=== PATIENT | female | born 2000 | race Caucasian/White ===

== ENCOUNTER → 2021-05-20 | Outpatient (CLI) | payer BC ==
[~2021-05-20] MED LIST: DICY10CA13 PO; LEVO88TA3 PO; LEXA1TAB PO; NORG1TAB33 PO; TRET0.0540
== END ==
LOC: M LABSMTC 12:29
PROVIDERS: ATTEND Anesthesiology
DX: Z01.818 Encounter for other preprocedural examination (principal); Z11.52 Encounter for screening for COVID-19

== ENCOUNTER 2021-05-25 10:55 | Day surgery (SDC) | payer BC ==
[~2021-05-25] VITALS: Ht 160 cm; Wt 73.5 kg
[~2021-05-25 10:55] MED LIST changes: +NS 1,000 ML IV ONE
[2021-05-25] MEDS ORDERED: propofoL 500 MG/50 ML VIAL As Ordered ONE (11:09)
[2021-05-25] MEDS ORDERED: fentaNYL 100 MCG/2 ML INJECTION (J3010) As Ordered ONE (11:11)
[2021-05-25] MEDS ORDERED: LIDOCAINE 2% 100MG/5ML SDV (FOR ANES.) As Ordered ONE (11:13)
--- NOTE | 2021-05-25 13:41 | ROOR ---
Patient Name: Emani Patino Procedure Date: 05/25/2021 1:23 PM Date of : 2000 Age: 20 Room: [facility] Gender: Female Note Status: Finalized Procedure: Upper GI endoscopy Indications: Abdominal pain Providers: Emil Colin MD Referring MD: Ivonne Godinez NP Requesting Provider: Medicines: Monitored Anesthesia Care Complications: No immediate complications. Procedure: Pre-Anesthesia Assessment: - The heart rate, respiratory rate, oxygen saturations, blood pressure, adequacy of pulmonary ventilation, and response to care were monitored throughout the procedure. The Endoscope was introduced through the mouth, and advanced to the second part of duodenum. The upper GI endoscopy was accomplished without difficulty. The patient tolerated the procedure well. Findings: The examined esophagus was normal. The Z-line was variable and was found 38 cm from the incisors. This was biopsied with a cold forceps for histology. The entire examined stomach was normal. The examined duodenum was normal. Biopsies for histology were taken with a cold forceps for evaluation of celiac disease. Impression: - Normal esophagus. Z-line variable, 38 cm from the incisors. Biopsied. - Normal stomach. - Normal examined duodenum. Biopsied. Recommendation: - Observe patient's clinical course. - Telephone endoscopist for pathology results in 2 weeks. Procedure Code(s): --- Professional --- 44895, Esophagogastroduodenoscopy, flexible, transoral; with biopsy, single or multiple Diagnosis Code(s): --- Professional --- K22.8, Other specified diseases of esophagus R10.9, Unspecified abdominal pain CPT copyright 2019 [employer]. All rights reserved. The codes documented in this report are preliminary and upon body specialist review may be revised to meet current compliance requirements. Emil Colin MD Emil Colin MD 05/25/2021 1:41:15 PM Electronically signed by Emil Colin MD Number of Addenda: 0 Note Initiated On: 05/25/2021 1:23 PM Estimated Blood Loss: Estimated blood loss: none.
--- NOTE | 2021-05-25 13:57 | ROOR ---
Patient Name: Emani Patino Procedure Date: 05/25/2021 1:23 PM Date of : 2000 Age: 20 Room: [facility] Gender: Female Note Status: Finalized Procedure: Colonoscopy Indications: Generalized abdominal pain, Suspected irritable bowel syndrome, Mixed irritable bowel syndrome Providers: Emil Colin MD Referring MD: Ivonne Godinez NP Requesting Provider: Medicines: Monitored Anesthesia Care Complications: No immediate complications. Procedure: Pre-Anesthesia Assessment: - The heart rate, respiratory rate, oxygen saturations, blood pressure, adequacy of pulmonary ventilation, and response to care were monitored throughout the procedure. The Colonoscope was introduced through the anus and advanced to 10 cm into the ileum. The colonoscopy was performed without difficulty. The patient tolerated the procedure well. The quality of the bowel preparation was good. Findings: The perianal and digital rectal examinations were normal. Small Internal Hemorrhoids. The entire examined colon appeared normal. The terminal ileum appeared normal. Biopsies for histology were taken with a cold forceps for evaluation of microscopic colitis. Impression: - Small Internal Hemorrhoids. - The entire examined colon is normal. - The examined portion of the ileum was normal. - Biopsies were taken with a cold forceps for evaluation of microscopic colitis. - (Irritable Bowel Syndrome/IBS suspected.) Recommendation: - Use fiber, for example Citrucel, Fibercon, Konsyl or Metamucil. - Continue present medications. - Await pathology results. - Telephone endoscopist for pathology results in 2 weeks. - Please complete your stool testing and your blood work as ordered. Call me 2 weeks after completion of blood/stool testing for results. Procedure Code(s): --- Professional --- 06862, Colonoscopy, flexible; with biopsy, single or multiple Diagnosis Code(s): --- Professional --- K58.2, Mixed irritable bowel syndrome R10.84, Generalized abdominal pain CPT copyright 2019 [employer]. All rights reserved. The codes documented in this report are preliminary and upon emergency dispatcher review may be revised to meet current compliance requirements. Emil Colin MD Emil Colin MD 05/25/2021 1:57:16 PM Electronically signed by Emil Colni MD Number of Addenda: 0 Note Initiated On: 05/25/2021 1:23 PM Estimated Blood Loss: Estimated blood loss: none.
[2021-05-25 14:20] VITALS: BP 110/71
== END 2021-05-25 14:27 | disposition home or self-care (01) ==
LOC: M OPP 10:55
PROVIDERS: ATTEND Internal Medicine Gastroenterology
DX: K58.2 Mixed irritable bowel syndrome (principal); K64.8 Other hemorrhoids; K22.8 Other specified diseases of esophagus; R10.9 Unspecified abdominal pain; Z79.899 Other long term (current) drug therapy; Z88.1 Allergy status to other antibiotic agents; F17.290 Nicotine dependence, other tobacco product, uncomplicated
CPT/HCPCS: 43239; 45380; 88305; J3010

== ENCOUNTER → 2021-07-13 | Outpatient (CLI) | payer BC ==
[~2021-07-13] MED LIST changes: -NS 1,000 ML IV ONE
[2021-07-13 15:46] LABS: FREE T4 1.33 NG/DL (0.76-1.46); IMMUNOGLOBULIN A 88.5 MG/DL (70-400); THYROID STIMULATING HORMONE 2.81 uIU/ML (0.358-3.740)
== END ==
LOC: M LAB 14:29
PROVIDERS: ATTEND Internal Medicine Gastroenterology
DX: K58.2 Mixed irritable bowel syndrome (principal)

== ENCOUNTER → 2022-11-10 | Outpatient (REF) | payer BC | LOC: M SFHCWAGY 17:13 | PROVIDERS: ATTEND Advanced Practice Midwife | DX: Z12.4 Encounter for screening for malignant neoplasm of cervix (principal) ==

== ENCOUNTER 2023-11-02 15:07 | Emergency (ER) | payer BC ==
[~2023-11-02] VITALS: Ht 160 cm; Wt 76.7 kg
[~2023-11-02 15:07] MED LIST changes: +DICY-61 PO; -DICY10CA13 PO
[2023-11-02] MEDS ORDERED: AMIT50TA PO (15:32)
[2023-11-02 16:55] LABS: BASO # 0.1 10^3/uL (0.0-0.2); BASO % 0.8 % (0.0-1.0); EOS # 0.1 10^3/uL (0.0-0.5); LYMPH # 2.1 10^3/uL (1.5-5.0); LYMPH % 32.9 % (24.0-44.0); MEAN CORPUSCULAR HEMOGLOBIN 31.7 pg (27.0-33.0); MEAN CORPUSCULAR HGB CONC 33.3 g/dl (32.0-36.5); MONO # 0.4 10^3/uL (0.0-0.8); MONO % 6.5 % (2.0-8.0); NEUTROPHILS # 3.6 10^3/uL (1.5-8.5); NEUTROPHILS % 57.3 % (36.0-66.0); PLATELET COUNT, AUTOMATED 241 10^3/uL (150-450); RED BLOOD COUNT 4.42 10^6/uL (4.00-5.40); WHITE BLOOD COUNT 6.4 10^3/uL (4.0-10.0)
[2023-11-02 17:18] LABS: BLOOD UREA NITROGEN 11 MG/DL (9-23); CALCIUM LEVEL 9.4 MG/DL (8.5-10.1); CARBON DIOXIDE LEVEL 27 MMOL/L (20-31); CHLORIDE LEVEL 105 MMOL/L (98-107); CREATININE FOR GFR 0.66 MG/DL (0.55-1.30); GLOMERULAR FILTRATION RATE > 60.0 (>60); GLUCOSE, FASTING 124 MG/DL (60-100); HCG, SERUM QUALITATIVE NEGATIVE (NEGATIVE); POTASSIUM SERUM 3.8 MMOL/L (3.5-5.1); SODIUM LEVEL 137 MMOL/L (136-145)
[2023-11-02 22:52] VITALS: BP 142/97; TEMP 97.7; O2SAT 99
== END 2023-11-02 22:53 | disposition home or self-care (01) ==
LOC: M ED 15:07
DX: R31.9 Hematuria, unspecified (principal); E03.9 Hypothyroidism, unspecified; Z88.1 Allergy status to other antibiotic agents; Z79.82 Long term (current) use of aspirin; Z79.890 Hormone replacement therapy; Z79.899 Other long term (current) drug therapy

== ENCOUNTER → 2023-11-23 | Outpatient (REF) | payer BC ==
[~2023-11-23] MED LIST changes: +AMIT50TA PO
== END ==
LOC: M PLALAB 09:44
PROVIDERS: ATTEND Advanced Practice Midwife
DX: Z12.4 Encounter for screening for malignant neoplasm of cervix (principal)

== ENCOUNTER → 2024-01-02 | Outpatient (CLI) | payer BC | LOC: M WHC 11:02 | PROVIDERS: ATTEND Advanced Practice Midwife | DX: N63.20 Unspecified lump in the left breast, unspecified quadrant (principal) ==

== ENCOUNTER → 2024-02-22 | Outpatient (REF) | payer BC ==
[2024-02-22 16:30] LABS: BASO # 0.1 10^3/uL (0.0-0.2); BASO % 1.1 % (0.0-1.0); EOS # 0.1 10^3/uL (0.0-0.5); HEMATOCRIT 38.5 % (36.0-47.0); HEMOGLOBIN 12.9 g/dl (12.0-15.5); LYMPH # 2.2 10^3/uL (1.5-5.0); LYMPH % 33.3 % (24.0-44.0); MEAN CORPUSCULAR HEMOGLOBIN 31.7 pg (27.0-33.0); MEAN CORPUSCULAR HGB CONC 33.5 g/dl (32.0-36.5); MEAN CORPUSCULAR VOLUME 94.6 fl (80.0-96.0); MONO # 0.5 10^3/uL (0.0-0.8); MONO % 7.1 % (2.0-8.0); NEUTROPHILS # 3.7 10^3/uL (1.5-8.5); NEUTROPHILS % 56.2 % (36.0-66.0); PLATELET COUNT, AUTOMATED 253 10^3/uL (150-450); RED BLOOD COUNT 4.07 10^6/uL (4.00-5.40); WHITE BLOOD COUNT 6.5 10^3/uL (4.0-10.0)
[2024-02-22 16:32] LABS: APPEARANCE, URINE CLEAR (CLEAR); BACTERIA, URINE AUTO 3+ (NEGATIVE); BILIRUBIN, URINE AUTO NEGATIVE (NEGATIVE); BLOOD, URINE BLOOD 2+ (NEGATIVE); COLOR, URINE STRAW (YELLOW); GLUCOSE, URINE (UA) AUTO NEGATIVE (NEGATIVE); KETONE, URINE AUTO NEGATIVE (NEGATIVE); LEUKOCYTE ESTERASE, URINE AUTO TRACE (NEGATIVE); NITRITE, URINE AUTO NEGATIVE (NEGATIVE); PROTEIN, URINE AUTO NEGATIVE (NEGATIVE); RBC, URINE AUTO 1 /HPF (0-3); SPECIFIC GRAVITY URINE AUTO 1.009 (1.002-1.035); SQUAMOUS EPITHELIAL CELL UR AU 7 /HPF (0-6); UROBILINOGEN, URINE AUTO 0.2 mg/dL (0.0-2.0); WBC, URINE AUTO 2 /HPF (0-3)
[2024-02-22 16:37] LABS: ERYTHROCYTE SEDIMENTATION RATE 2 mm/hr (0-20)
[2024-02-22 16:38] LABS: C REACTIVE PROTEIN QUANTITATIV < 0.40 MG/DL (<1.0)
[2024-02-22 16:39] LABS: COMPLEMENT C3 139.1 MG/DL (82.0-160.0)
[2024-02-22 16:52] LABS: ALKALINE PHOSPHATASE 47 U/L (46-116); ALT/SGPT 30 U/L (7.0-40); AST/SGOT 18 U/L (<34); BILIRUBIN,TOTAL 0.4 MG/DL (0.3-1.2); BLOOD UREA NITROGEN 12 MG/DL (9-23); CALCIUM LEVEL 9.8 MG/DL (8.5-10.1); CARBON DIOXIDE LEVEL 26 MMOL/L (20-31); CHLORIDE LEVEL 103 MMOL/L (98-107); CREATININE FOR GFR 0.68 MG/DL (0.55-1.30); GLOMERULAR FILTRATION RATE > 60.0 (>60); GLUCOSE, FASTING 79 MG/DL (60-100); POTASSIUM SERUM 4.2 MMOL/L (3.5-5.1); SODIUM LEVEL 137 MMOL/L (136-145); TOTAL PROTEIN 6.7 G/DL (5.7-8.2)
[2024-02-22 18:34] LABS: CREATININE,RANDOM URINE 53.1 MG/DL
[2024-02-22 18:39] LABS: TOTAL PROTEIN,RANDOM URINE < 6.0 MG/DL (0.0-14.0)
[2024-02-22 19:20] LABS: HEPATITIS B CORE ANTIBODY IGM NEGATIVE (NEGATIVE); HEPATITIS C VIRUS ABY INDEX < 0.02 INDEX (<0.8)
== END ==
LOC: M SFHCRHEU 13:40
PROVIDERS: ATTEND Internal Medicine Rheumatology
DX: R76.8 Other specified abnormal immunological findings in serum (principal); M25.50 Pain in unspecified joint; I73.00 Raynaud's syndrome without gangrene; R21 Rash and other nonspecific skin eruption; R53.83 Other fatigue

== ENCOUNTER → 2024-03-07 | Outpatient (CLI) | payer BC | LOC: M PLAIMG 14:43 | PROVIDERS: ATTEND Internal Medicine Rheumatology | DX: R76.8 Other specified abnormal immunological findings in serum (principal); M25.50 Pain in unspecified joint; I73.00 Raynaud's syndrome without gangrene; R21 Rash and other nonspecific skin eruption; R53.83 Other fatigue ==

== ENCOUNTER → 2025-02-10 | Outpatient (REF) | payer BC ==
[2025-02-12 13:02] LABS: HPV APTIMA Not Detected (Not Detected)
== END ==
LOC: M SFHCWAGY 13:11
PROVIDERS: ATTEND Advanced Practice Midwife
DX: Z12.4 Encounter for screening for malignant neoplasm of cervix (principal)
CPT/HCPCS: 87624; G0123